=== PATIENT | male | born 1980 | race Caucasian/White ===

== ENCOUNTER 2018-10-28 09:23 | Emergency (ER) | payer OTHER ==
[2018-10-28] MEDS: DIPHENHYDRAMINE 25 MG CAP PO (10:13)
[2018-10-28] MEDS: FAMOTIDINE 20 MG TAB PO (10:13)
[2018-10-28] MEDS: DEXAMETHASONE 10 MG/ML 1 ML INJ IM (10:13)
== END 2018-10-28 10:34 | disposition home or self-care (01) ==
LOC: FTE 09:23
DX: R22.0 Localized swelling, mass and lump, head (principal); F17.210 Nicotine dependence, cigarettes, uncomplicated
CPT/HCPCS: 96372; 99284-25